=== PATIENT | female | born 1980 | race African-American/Black ===

== ENCOUNTER 2016-10-11 01:58 | Emergency (ER) | payer MEDICAID ==
[2016-10-11] MEDS ORDERED: KETOROLAC 60MG/2ML VIAL IM ONE (04:44)
[2016-10-11] MEDS ORDERED: PROCHLORPERAZINE MALEATE 10MG TABLET ONE (04:45)
== END 2016-10-11 04:45 | disposition home or self-care (01) ==
LOC: ER 02:07
DX: G89.29 Other chronic pain (principal); G43.909 Migraine, unspecified, not intractable, without status migrainosus; M25.571 Pain in right ankle and joints of right foot; M25.561 Pain in right knee
CPT/HCPCS: 99282; J1885; Q0164

== ENCOUNTER 2017-03-29 03:14 | Emergency (ER) | payer MEDICAID ==
[~2017-03-29] VITALS: Ht 180.3 cm; Wt 91.0 kg
[2017-03-29 07:01] VITALS: BP 115/69
== END 2017-03-29 08:56 | disposition left against medical advice (07) ==
LOC: ER 03:14
DX: M25.551 Pain in right hip (principal); J45.909 Unspecified asthma, uncomplicated; F17.200 Nicotine dependence, unspecified, uncomplicated
CPT/HCPCS: 99283; Z7610

== ENCOUNTER 2017-05-18 05:32 | Emergency (ER) | payer MEDICAID ==
[~2017-05-18] VITALS: Ht 180.3 cm; Wt 90.1 kg
[2017-05-18] MEDS ORDERED: ACETAMINOPHEN 325MG TABLET PO ONE (08:15)
[2017-05-18 08:35] LABS: EOSINOPHILS % 0.4 % (0.0-5.0); HEMATOCRIT. 35.9 % (36.0-48.0); HEMOGLOBIN. 11.9 g/dL (12.0-16.0); LYMPHOCYTES % 25.9 % (20.0-50.0); MEAN CORPUSCULAR HEMOGLOBIN 31.4 pg (28.0-32.0); MEAN CORPUSCULAR VOLUME 94.6 fL (81.0-99.0); MEAN PLATELET VOLUME 7.3 fl (7.4-10.4); NEUTROPHILS % 67.7 % (40.0-76.0); PLATELET 308 x1000/uL (130-400); RED BLOOD CELL COUNT 3.79 mill/uL (4.2-5.4); RED CELL DISTRIBUTION WIDTH 14.8 % (11.6-14.6)
[2017-05-18 08:41] LABS: CHLORIDE 105 mEq/L (98-107)
[2017-05-18 08:57] LABS: CLARITY URINE CLEAR (CLEAR); COLOR URINE YELLOW (YELLOW); KETONES URINE NEGATIVE (NEGATIVE); LEUKOCYTE ESTERASE URINE 1+ (NEGATIVE); NITRITE URINE NEGATIVE (NEGATIVE); OCCULT BLOOD URINE NEGATIVE (NEGATIVE); PROTEIN URINE NEGATIVE (NEGATIVE); SPECIFIC GRAVITY URINE 1.017 (1.005-1.030); UROBILINOGEN URINE 0.2 E.U./dL (0.2-1.0)
[2017-05-18 08:58] LABS: CARBON DIOXIDE 24 mEq/L (21-32)
[2017-05-18 09:05] LABS: B-HCG QUANTITATIVE 34062 mIU/mL (<3)
[2017-05-18 10:57] VITALS: BP 112/55
== END 2017-05-18 14:10 | disposition home or self-care (01) ==
LOC: ER 05:48
DX: O23.41 Unspecified infection of urinary tract in pregnancy, first trimester (principal); N39.0 Urinary tract infection, site not specified; O99.511 Diseases of the respiratory system complicating pregnancy, first trimester; J45.909 Unspecified asthma, uncomplicated; O99.331 Smoking (tobacco) complicating pregnancy, first trimester; F17.200 Nicotine dependence, unspecified, uncomplicated; G43.909 Migraine, unspecified, not intractable, without status migrainosus; Z3A.01 Less than 8 weeks gestation of pregnancy; Z98.890 Other specified postprocedural states
CPT/HCPCS: 36415; 76801; 80053; 81001; 81025; 84702; 85025; 86850; 86900; 99285